=== PATIENT | male | born 1965 | race African-American/Black ===

== ENCOUNTER 2020-04-27 20:15 | Emergency (ER) | payer OTHER ==
[2020-04-27] MEDS ORDERED: ACETAMINOPHEN 500 MG TAB ONE (21:44)
[2020-04-27] MEDS ORDERED: ONDANSETRON 4 MG/2 ML VIAL ONE (22:11)
[2020-04-27 22:32] LABS: Absolute Lymphocytes (CBC) 1.3 K/uL (0.7-4.9); MPV 9.2 fL (7.6-11.3)
[2020-04-27 22:38] LABS: Basophils % 0.9 % (0-1.3); Hematocrit 51.2 % (39.6-49.0); Lymphocytes % 20.6 % (15.3-44.8); RBC Red Blood Cell Count 5.87 M/uL (4.33-5.43)
[2020-04-27 23:02] LABS: Protime INR 1.06
[2020-04-27 23:08] LABS: ALT/SGPT 41 U/L (12-78); AST/SGOT 25 U/L (15-37); Albumin 3.4 g/dL (3.4-5.0); Alkaline Phosphatase 66 U/L (45-117); BUN Blood Urea Nitrogen 15 mg/dL (7-18); Bicarbonate 25 mmol/L (21-32); Bilirubin Direct 0.1 mg/dL (0-0.2); Bilirubin Total 0.3 mg/dL (0.2-1.0); CKMB Creatine Kinase MB < 1.0 ng/mL (0.3-3.6); Creatine Phosphokinase 88 U/L (39-308); Ferritin 381.7 ng/mL (26-388); Glucose Level 148 mg/dL (74-106); Sodium Level 136 mmol/L (136-145); Troponin (Emerg Dept Use Only) < 0.02 ng/mL (0.0-0.045)
[2020-04-27] MEDS ORDERED: NA CHLORIDE 0.9% 1,000 ML ONE (23:42)
[2020-04-28 00:16] LABS: Urine White Blood Cell Casts OK
[2020-04-28 00:17] LABS: Blood Morphology Comment NOT SEEN (NOT SEEN); Platelet Estimate ADEQ; Platelets, Giant SEEN
--- NOTE | 2020-04-28 00:37 | ER ---
Nurse's Notes [facility] Name: Abdifatah Mast Age: 54 yrs Sex: Male : 1965 Arrival Date: 04/27/2020 Time: 20:19 Bed 14 Private MD: Diagnosis: Viral infection, unspecified Presentation: 04/27 20:31 Chief complaint: Patient states: Weak, SOB with cough, fever for 3 days. Pending covid ll1 test result. But feels worse since testing. Coronavirus screen: Surgical mask placed on patient. Patient moved to private room, placed in contact and droplet isolation with eye protection until further assessment. Patient reports a cough. Patient reports shortness of breath or difficulty breathing. Patient reports a measured and/or subjective temperature greater than 100.4F. Patient denies travel on a cruise ship or to a country the [facility] currently lists as an affected area. Patient reports contact with known and/or suspected case of COVID-19. Ebola Screen: Patient denies travel to an Ebola-affected area in the 21 days before illness onset. Initial Sepsis Screen: Does the patient meet any 2 criteria? HR > 90 bpm. No. Patient's initial sepsis screen is negative. Risk Assessment: Do you want to hurt yourself or someone else? Patient reports no desire to harm self or others. Onset of symptoms was April 24, 2020. 20:31 Method Of Arrival: Ambulatory ll1 20:31 Acuity: ANTONINO 3 ll1 Historical: - Allergies: 20:33 No Known Allergies; ll1 - PMHx: 20:33 None; ll1 - PSHx: 20:33 None; ll1 - Immunization history:: Flu vaccine is not up to date. - Social history:: Smoking status: Patient reports the use of cigarette tobacco products, smokes one pack cigarettes per day. Patient/guardian denies using alcohol, street drugs. Screenin:00 Abuse screen: Denies threats or abuse. Nutritional screening: No deficits noted. jb4 Tuberculosis screening: No symptoms or risk factors identified. Fall Risk None identified. Assessment: 21:00 General: Appears in no apparent distress. uncomfortable, Behavior is calm, cooperative, jb4 appropriate for age. Pain: Complains of pain in Generalized. Pain does not radiate. Pain currently is 7 out of 10 on a pain scale. Quality of pain is described as aching, throbbing, Pain began 1 day ago. Is continuous. Neuro: Level of Consciousness is awake, alert, obeys commands, Oriented to person, place, time, situation. Cardiovascular: Patient's skin is warm and dry. Respiratory: Airway is patent Respiratory effort is even, unlabored, Respiratory pattern is regular, symmetrical. GI: No signs and/or symptoms were reported involving the gastrointestinal system. : No signs and/or symptoms were reported regarding the genitourinary system. EENT: No signs and/or symptoms were reported regarding the EENT system. Derm: Skin is intact, Skin is dry, Skin is normal, Skin temperature is warm. Musculoskeletal: Circulation, motion, and sensation intact. Range of motion: intact in all extremities. 22:27 Reassessment: Patient appears in no apparent distress at this time. Patient and/or jb4 family updated on plan of care and expected duration. Pain level reassessed. Patient is alert, oriented x 3, equal unlabored respirations, skin warm/dry/pink. 23:40 Reassessment: Patient appears in no apparent distress at this time. Patient and/or jb4 family updated on plan of care and expected duration. Pain level reassessed. Patient is alert, oriented x 3, equal unlabored respirations, skin warm/dry/pink. Patient states feeling better. 04/28 00:57 Reassessment: Patient appears in no apparent distress at this time. Patient and/or jb4 family updated on plan of care and expected duration. Pain level reassessed. Patient is alert, oriented x 3, equal unlabored respirations, skin warm/dry/pink. Patient states feeling better. Patient states symptoms have improved. Vital Signs: 04/27 20:31 BP 151 / 105; Pulse 93; Resp 20; Temp 101.3; Pulse Ox 97% ; Pain 7/10; ll1 22:00 BP 112 / 87; Pulse 69; Resp 16; Pulse Ox 98% on R/A; jb4 23:00 BP 125 / 84; Pulse 73; Resp 16; Pulse Ox 93% on R/A; jb4 23:30 BP 125 / 88; Pulse 71; Resp 16; Temp 98.0(O); Pulse Ox 95% on R/A; Pain 4/10; jb4 ED Course: 20:19 Patient arrived in ED. es 20:32 Triage completed. ll1 20:33 Arm band placed on. ll1 20:46 Alan Louise PA is PHCP. jr8 20:46 Stephon Lazar MD is Attending Physician. jr8 20:47 Jaden Tan, RN is Primary Nurse. jb4 21:00 Patient has correct armband on for positive identification. Bed in low position. Call jb4 light in reach. Side rails up X 1. Pulse ox on. NIBP on. 21:54 Chest Single View XRAY In Process Unspecified. EDMS 22:00 Inserted saline lock: 18 gauge in right antecubital area, using aseptic technique. jb4 Blood collected. 22:00 Initial lab(s) drawn, by tn, sent to lab. First set of blood cultures drawn by me. jb4 22:40 Second set of blood cultures drawn by me, EKG done, by ED staff, reviewed by Alan huerta3 Dani ARMANDO. 04/28 00:57 No provider procedures requiring assistance completed. IV discontinued, intact, jb4 bleeding controlled, No redness/swelling at site. Pressure dressing applied. Administered Medications: 04/27 21:45 Drug: Acetaminophen 1000 mg Route: PO; jb4 23:40 Follow up: Response: No adverse reaction; Temperature is decreased; Pain is decreased jb4 22:23 Drug: Zofran (Ondansetron) 4 mg Route: IVP; Site: right antecubital; jb4 23:00 Follow up: Response: No adverse reaction; Nausea is decreased jb4 23:39 Drug: NS 0.9% 1000 ml Route: IV; Rate: 1000 ml; Site: right antecubital; jb4 Outcome: 04/28 00:36 Discharge ordered by . jr8 00:57 Discharged to home ambulatory, with family. jb4 00:57 Condition: stable 00:57 Discharge instructions given to patient, family, Instructed on discharge instructions, follow up and referral plans. medication usage, Demonstrated understanding of instructions, follow-up care, medications, Prescriptions given X 2. 00:59 Patient left the ED. jb4 Signatures: Dispatcher [employer] EDAZ Kristin Goodrich Josh, PA PA jr8 Jaden Tan, RN RN jb4 Juanito Schultz jp3 Bruna Liu RN RN ll1
--- NOTE | 2020-04-28 00:38 | EDPHYS ---
Physician Documentation [facility] Name: Abdifatah Mast Age: 54 yrs Sex: Male : 1965 Arrival Date: 04/27/2020 Time: 20:19 Bed 14 Private MD: ED Physician Stephon Lazar HPI: 04/27 22:55 This 54 yrs old Black Male presents to ER via Ambulatory with complaints of possible jr8 covid-19. 22:55 The patient reports fever, that was measured at 101.3 degrees Fahrenheit. Onset: The jr8 symptoms/episode began/occurred gradually, 2 day(s) ago. Modifying factors: The patient has had contact with sick co-worker(s). Associated signs and symptoms: Pertinent positives: arthralgias, chills, cough, decreased appetite, headache, nausea, sore throat. Severity of symptoms: At their worst the symptoms were moderate in the emergency department the symptoms are unchanged. The patient has not experienced similar symptoms in the past. The patient has been recently seen by a physician:. Seen at [facility] and had CXR without acute findings along with COVID swab. Still pending swab. Came to ED here today for worsening of symptoms . Historical: - Allergies: 20:33 No Known Allergies; ll1 - PMHx: 20:33 None; ll1 - PSHx: 20:33 None; ll1 - Immunization history:: Flu vaccine is not up to date. - Social history:: Smoking status: Patient reports the use of cigarette tobacco products, smokes one pack cigarettes per day. Patient/guardian denies using alcohol, street drugs. ROS: 22:55 Eyes: Negative for injury, pain, redness, and discharge, ENT: Negative for injury, jr8 pain, and discharge, Neck: Negative for injury, pain, and swelling, Cardiovascular: Negative for chest pain, palpitations, and edema, Back: Negative for injury and pain, MS/Extremity: Negative for injury and deformity, Skin: Negative for injury, rash, and discoloration. 22:55 Constitutional: Positive for body aches, chills, fever, malaise, poor PO intake. 22:55 Respiratory: Positive for cough, shortness of breath. 22:55 Abdomen/GI: Positive for nausea, Negative for abdominal pain, vomiting, diarrhea, constipation, abdominal cramps. 22:55 Neuro: Positive for headache. Exam: 22:55 Eyes: Pupils equal round and reactive to light, extra-ocular motions intact. Lids and jr8 lashes normal. Conjunctiva and sclera are non-icteric and not injected. Cornea within normal limits. Periorbital areas with no swelling, redness, or edema. ENT: Nares patent. No nasal discharge, no septal abnormalities noted. Tympanic membranes are normal and external auditory canals are clear. Oropharynx with no redness, swelling, or masses, exudates, or evidence of obstruction, uvula midline. Mucous membranes moist. Neck: Trachea midline, no thyromegaly or masses palpated, and no cervical lymphadenopathy. Supple, full range of motion without nuchal rigidity, or vertebral point tenderness. No Meningismus. Cardiovascular: Regular rate and rhythm with a normal S1 and S2. No gallops, murmurs, or rubs. Normal PMI, no JVD. No pulse deficits. Respiratory: Lungs have equal breath sounds bilaterally, clear to auscultation and percussion. No rales, rhonchi or wheezes noted. No increased work of breathing, no retractions or nasal flaring. Abdomen/GI: Soft, non-tender, with normal bowel sounds. No distension or tympany. No guarding or rebound. No evidence of tenderness throughout. Back: No spinal tenderness. No costovertebral tenderness. Full range of motion. Skin: Warm, dry with normal turgor. Normal color with no rashes, no lesions, and no evidence of cellulitis. MS/ Extremity: Pulses equal, no cyanosis. Neurovascular intact. Full, normal range of motion. Neuro: Awake and alert, GCS 15, oriented to person, place, time, and situation. Cranial nerves II-XII grossly intact. Motor strength 5/5 in all extremities. Sensory grossly intact. Cerebellar exam normal. Normal gait. 22:55 Constitutional: The patient appears alert, awake, febrile, uncomfortable. Vital Signs: 20:31 BP 151 / 105; Pulse 93; Resp 20; Temp 101.3; Pulse Ox 97% ; Pain 7/10; ll1 22:00 BP 112 / 87; Pulse 69; Resp 16; Pulse Ox 98% on R/A; jb4 23:00 BP 125 / 84; Pulse 73; Resp 16; Pulse Ox 93% on R/A; jb4 23:30 BP 125 / 88; Pulse 71; Resp 16; Temp 98.0(O); Pulse Ox 95% on R/A; Pain 4/10; jb4 MDM: 20:46 Patient medically screened. [facility] 23:29 Data reviewed: vital signs, nurses notes, lab test result(s), radiologic studies, [facility] films. Data interpreted: Pulse oximetry: on room air is 97 %. Interpretation: normal. Counseling: I had a detailed discussion with the patient and/or guardian regarding: the historical points, exam findings, and any diagnostic results supporting the discharge/admit diagnosis, lab results, radiology results, the need for outpatient follow up, a family practitioner, to return to the emergency department if symptoms worsen or persist or if there are any questions or concerns that arise at home. ED course: Patient feeling better. Able to maintain a good oxygen saturation. Fever decreased. Will d/c home to continue to isolate. If worse to come back to ED . 04/27 21:27 Order name: D-Dimer; Complete Time: 23:29 04/27 21:27 Order name: C-Reactive Protein; Complete Time: 23:08 04/27 21:27 Order name: Fibrinogen; Complete Time: 23:29 04/27 21:27 Order name: Basic Metabolic Panel; Complete Time: 23:08 04/27 21:27 Order name: Blood Culture Adult (2) 04/27 21:27 Order name: CBC with Diff 04/27 21:27 Order name: Ckmb; Complete Time: 23:08 04/27 21:27 Order name: CPK; Complete Time: 23:08 04/27 21:27 Order name: Lactate; Complete Time: 23:09 04/27 21:27 Order name: LFT's; Complete Time: 23:08 04/27 21:27 Order name: Procalcitonin; Complete Time: 23:29 04/27 21:27 Order name: Protime (+inr); Complete Time: 23:29 04/27 21:27 Order name: Ptt, Activated; Complete Time: 23:29 04/27 21:27 Order name: Troponin (emerg Dept Use Only); Complete Time: 23:08 04/27 21:27 Order name: Chest Single View XRAY 04/27 21:27 Order name: Accucheck; Complete Time: 23:11 04/27 21:27 Order name: Cardiac monitoring; Complete Time: 22:24 04/27 21:27 Order name: EKG - Nurse/Tech; Complete Time: 22:49 04/27 21:27 Order name: IV Saline Lock - Large Bore; Complete Time: 22:24 04/27 21:27 Order name: Labs collected and sent; Complete Time: 22:23 04/27 21:27 Order name: O2 Per Protocol; Complete Time: :04/27 21:27 Order name: O2 Sat Monitoring; Complete Time: :04/27 21:28 Order name: Ferritin; Complete Time: 23:08 04/28 00:17 Order name: CBC Smear Scan; Complete Time: 00:35 EDMS Administered Medications: 21:45 Drug: Acetaminophen 1000 mg Route: PO; jb4 23:40 Follow up: Response: No adverse reaction; Temperature is decreased; Pain is decreased jb4 22:23 Drug: Zofran (Ondansetron) 4 mg Route: IVP; Site: right antecubital; jb4 23:00 Follow up: Response: No adverse reaction; Nausea is decreased jb4 23:39 Drug: NS 0.9% 1000 ml Route: IV; Rate: 1000 ml; Site: right antecubital; jb4 Disposition: 04/28 06:35 Co-signature as Attending Physician, Stephon Lazar MD I agree with the assessment and 4 plan of care. Disposition: 04/28/20 00:36 Discharged to Home. Impression: Viral infection, unspecified. - Condition is Stable. - Discharge Instructions: Viral Respiratory Infection. - Prescriptions for Zofran 4 mg Oral Tablet - take 1 tablet by ORAL route every 12 hours As needed; 20 tablet. Guaifenesin AC 10- 100 mg/5 mL Oral Liquid - take 10 milliliter by ORAL route every 4 hours As needed; 240 milliliter. - Medication Reconciliation Form, Thank You Letter, Antibiotic Education, Prescription Opioid Use form. - Follow up: Private Physician; When: As needed; Reason: Recheck today's complaints, Continuance of care, Re-evaluation by your physician. - Problem is new. - Symptoms have improved. Signatures: Dispatcher [employer] EDMS Alan Louise PA PA jr8 Jaden Tan, RN RN jb4 Stephon Lazar MD MD tw4 Bruna Liu RN RN ll1 Corrections: (The following items were deleted from the chart) 00:59 00:36 04/28/2020 00:36 Discharged to Home. Impression: Viral infection, unspecified. jb4 Condition is Stable. Forms are Medication Reconciliation Form, Thank You Letter, Antibiotic Education, Prescription Opioid Use. Follow up: Private Physician; When: As needed; Reason: Recheck today's complaints, Continuance of care, Re-evaluation by your physician. Problem is new. Symptoms have improved. jr8
[2020-04-28 02:09] VITALS: BP 125/88; TEMP 98; O2SAT 95
--- NOTE | 2020-04-28 07:39 | RAD REPORT ---
EXAM DESCRIPTION: RAD - Chest Single View - 04/27/2020 9:54 pm CLINICAL HISTORY: possible covid;Fever COMPARISON: None TECHNIQUE: AP portable chest image was obtained 04/27/2020 9:54 pm . FINDINGS: Lung volumes are low. No focal infiltrate in the right lung field. Left base is significan tly obscured by film technique and shallow inspiration. Left base pneumonia cannot be excluded on thi s examination. Heart size and vasculature are accentuated by shallow inspiration. No measurable pleural effusion an d no pneumothorax. No acute bony abnormality seen. No acute aortic findings suspected. IMPRESSION: Portable exam is significantly limited. Left base is poorly visualized and pneumonia can not be excluded. No focal right lung abnormality identifiable.
== END 2020-04-28 00:59 | disposition home or self-care (01) ==
LOC: ER 20:15
DX: B34.9 Viral infection, unspecified (principal); F17.210 Nicotine dependence, cigarettes, uncomplicated
CPT/HCPCS: 93005; 87040 ×2; 85025; 80048; 36415; 85384; 82550; 85610; 85379; 80076; 83605; 85730; 84484; 82553; 82728; 84145; 86140; 71045; 96374; 99284; J7030; J2405